=== PATIENT | female | born 1980 | race Caucasian/White ===

== ENCOUNTER 2018-05-13 08:13 | Emergency (ER) | payer BC ==
[2018-05-13 08:26] VITALS: BMI 29.9
--- NOTE | 2018-05-13 08:50 | ED PDOC ---
Arrival/HPI - General Historian: Patient, Family - History of Present Illness Time/Duration: Prior to Arrival Symptom Onset: Sudden Symptom Course: Unchanged Quality: Aching, Throbbing Severity Level: 8 Context: Walking, Street, Pedestrian <David Barrera - Last Filed: 05/13/18 09:42> <Jalen Olivia - Last Filed: 05/13/18 19:38> - General Chief Complaint: Lower Extremity Problem/Injury Time Seen by Provider: 05/13/18 08:26 - History of Present Illness Narrative History of Present Illness (Text): 05/13/18 08:47 Patient is a 37 year old female with no PMH presents s/p L ankle trauma. She states she fell while she was crossing the street. It hurts and she is barely able to move or walk on the ankle. She states that the bruise on the ankle has gotten larger since she fell about an hour ago. She has a surgical history of c/ s, has no medical allergies, and denies any pertinent family history. She is a current 2 PPD smoker, drinks alcohol occasionally, and denies using any other drugs. (David Barrera) Past Medical History - Provider Review Nursing Documentation Reviewed: Yes - Past History Past History: No Previous - Infectious Disease Hx of Infectious Diseases: None - Tetanus Immunization Tetanus Immunization: Unknown - Past Medical History Past Medical History: No Previous - Cardiac Hx Cardiac Disorders: No - Pulmonary Hx Respiratory Disorders: Yes Hx Asthma: Yes - Neurological Hx Neurological Disorder: No - HEENT Hx HEENT Disorder: No - Renal Hx Renal Disorder: No - Endocrine/Metabolic Hx Endocrine Disorders: No - Hematological/Oncological Hx Blood Disorders: No - Integumentary Hx Dermatological Disorder: No - Musculoskeletal/Rheumatological Hx Musculoskeletal Disorders: No - Gastrointestinal Hx Gastrointestinal Disorders: No - Genitourinary/Gynecological Hx Genitourinary Disorders: Yes Other/Comment: PID - Psychiatric Hx Psychophysiologic Disorder: No Hx Substance Use: No - Past Surgical History Past Surgical History: No Previous - Surgical History Hx Section: Yes Other/Comment: Tummy Tuck - Anesthesia Hx Anesthesia: Yes Hx Anesthesia Reactions: No Hx Malignant Hyperthermia: No - Suicidal Assessment Feels Threatened In Home Enviroment: No <David Barrera - Last Filed: 05/13/18 09:42> Family/Social History - Physician Review Nursing Documentation Reviewed: Yes Family/Social History: No Known Family HX Smoking Status: Heavy Smoker > 10 Cigarettes Daily Hx Alcohol Use: Yes (socially) Hx Substance Use: No Hx Substance Use Treatment: No <David Barrera - Last Filed: 05/13/18 09:42> Allergies/Home Meds <David Barrera - Last Filed: 05/13/18 09:42> <Jalen Olivia - Last Filed: 05/13/18 19:38> Allergies/Adverse Reactions: Allergies No Known Allergies Allergy (Verified 05/13/18 08:24) Home Medications: Home Meds Medication Instructions Recorded Confirmed No Known Home Med 05/13/18 05/13/18 Review of Systems - Physician Review All systems were reviewed & negative as marked: Yes - Review of Systems Constitutional: absent: Fatigue, Fevers Eyes: absent: Vision Changes ENT: absent: Hearing Changes, Sore Throat Respiratory: absent: SOB, Cough Cardiovascular: absent: Chest Pain, Palpitations Gastrointestinal: absent: Abdominal Pain, Nausea, Vomiting Genitourinary Female: absent: Dysuria, Frequency Musculoskeletal: absent: Arthralgias Skin: absent: Rash, Pruritis Neurological: absent: Headache, Dizziness Endocrine: absent: Diaphoresis Hemo/Lymphatic: absent: Adenopathy Psychiatric: absent: Anxiety, Depression <David Barrera - Last Filed: 05/13/18 09:42> Physical Exam Vital Signs Reviewed: Yes Temperature: Afebrile Blood Pressure: Normal Pulse: Regular Respiratory Rate: Normal Appearance: Positive for: Non-Toxic, Uncomfortable Pain Distress: Mild Mental Status: Positive for: Alert and Oriented X 3 - Systems Exam Head: Present: Atraumatic, Normocephalic Pupils: Present: PERRL Extroacular Muscles: Present: EOMI Ears: Present: Normal Mouth: Present: Moist Mucous Membranes Pharnyx: Present: Normal. No: ERYTHEMA, EXUDATE Nose (External): Present: Atraumatic Respiratory/Chest: Present: Wheezes (end expiratory wheezes bilaterally, pt states this is normal for her after having a cigarette). No: Decreased Breath Sounds, Rales, Rhonchi Cardiovascular: Present: Regular Rate and Rhythm, Normal S1, S2. No: Murmurs, Rub, Gallop Abdomen: Present: Normal Bowel Sounds. No: Tenderness, Rebound, Guarding Back: Present: Normal Inspection. No: CVA Tenderness Upper Extremity: Present: Normal Inspection. No: Cyanosis, Edema Lower Extremity: Present: Normal Inspection. No: Edema Neurological: Present: Speech Normal Skin: Present: Warm, Dry. No: Rashes Psychiatric: Present: Alert, Oriented x 3 <BarreraDavid - Last Filed: 05/13/18 09:42> Vital Signs Temp Pulse Resp BP Pulse Ox 05/13/18 09:45 98 F 85 19 123/56 L 99 05/13/18 08:25 98.4 F 89 18 124/85 94 L Medical Decision Making <David Barrera - Last Filed: 05/13/18 09:42> - RAD Interpretation Yard Attendant: Radiologist <Jalen Olivia - Last Filed: 05/13/18 19:38> ED Course and Treatment: 05/13/18 09:42 Instructed patient on proper crutch use and adjusted for her height. She is now able to ambulate with crutches. Instructed her to follow up with Dr. Smith after 2 weeks if she is not improving. (David Barrera) 05/13/18 08:28 Impression: 37 year old female presents to the Emergency department for 10/10 throbbing and sharp left ankle pain. In agreement with resident note, which includes further HPI details. Patient was seen and evaluated with resident, came up with plan and treatment together. Plan: --Ibuprofen -- X-Ray of ankle, left 3 views routine -- test, routine -- Reassess and disposition Progress Notes: X-Ray of ankle reviewed by radiologist, shows: Report Date : 05/13/2018 09:18:19 Creator : Andriy Marcelo MD Dictator : Andriy Marcelo MD Refrigeration Service Inspector : Andriy Marcelo MD FINDINGS: BONES: Normal. No fracture. JOINTS: Normal. No osteoarthritis. Ankle mortise maintained. Talar dome intact SOFT TISSUES: Normal. OTHER FINDINGS: None. IMPRESSION: Normal left ankle radiographs. 05/13/18 09:34 Patient ambulating now with crutches. (Jalen Olivia) - RAD Interpretation Radiology Orders: 05/13/18 08:39 ANKLE LEFT 3 VIEWS ROUTINE [RAD] Stat - Medication Orders Current Medication Orders: Discontinued Medications Ibuprofen (Motrin Tab) 600 mg PO ONCE ONE Stop: 05/13/18 08:47 Last Admin: 05/13/18 09:07 Dose: 600 mg MAR Pain/Vitals Document 05/13/18 09:07 GMI (Rec: 05/13/18 09:08 GMI [id number]) Pain Reassessment Is This A Pain ReAssessment? Yes Sleep Is patient sleeping during reassessment? No Presence of Pain Presence of Pain Yes Pain Scale Used Pain Scale Used Numeric Location Left, Right or Bilateral Left Pain Location Body Site Ankle <David Barrera - Last Filed: 05/13/18 09:42> - PA / BRASS CLEANER / Resident Statement MD/DO has reviewed & agrees with the documentation as recorded. MD/DO has examined the patient and agrees with the treatment plan. - Scribe Statement The provider has reviewed the documentation as recorded by the Scribe <Jalen Olivia - Last Filed: 05/13/18 19:38> - Scribe Statement Jahaira Alvarez All medical record entries made by the Scribe were at my direction and personally dictated by me. I have reviewed the chart and agree that the record accurately reflects my personal performance of the history, physical exam, medical decision making, and the department course for this patient. I have also personally directed, reviewed, and agree with the discharge instructions and disposition. (Jalen Olivia) Disposition/Present on Arrival - Present on Arrival Any Indicators Present on Arrival: No History of DVT/PE: No History of Uncontrolled Diabetes: No Urinary Catheter: No History of Decub. Ulcer: No History Surgical Site Infection Following: None - Disposition Have Diagnosis and Disposition been Completed?: Yes Disposition Time: 09:35 Patient Plan: Discharge <David Barrera - Last Filed: 05/13/18 09:42> <Jalen Olivia - Last Filed: 05/13/18 19:38> - Disposition Diagnosis: Left ankle sprain Disposition: HOME/ ROUTINE Condition: FAIR Discharge Instructions (ExitCare): Ankle Sprain (DC) Additional Instructions: Please follow up with orthopedic physician if you are still unable to walk without crutches at the end of two weeks. Referrals: Andriy Smith DO [Staff Provider] - Follow up with primary Forms: [employer] (Chinese)
--- NOTE | 2018-05-13 09:20 | RAD ---
Date of service: 05/13/2018 PROCEDURE: Left Ankle Radiographs. HISTORY: trauma COMPARISON: None FINDINGS: BONES: Normal. No fracture. JOINTS: Normal. No osteoarthritis. Ankle mortise maintained. Talar dome intact SOFT TISSUES: Normal. OTHER FINDINGS: None. IMPRESSION: Normal left ankle radiographs.
[2018-05-13 09:47] VITALS: BP 123/56; PULSE 85; RESP 19; TEMP 98; O2SAT 99
[2018-05-13] MEDS ORDERED: Albuterol-Ipratrop 3 mg / 0.5 (3 ml) UD ONE (12:49)
== END 2018-05-13 09:47 | disposition home or self-care (01) ==
LOC: ED 08:13
DX: S93.402A Sprain of unspecified ligament of left ankle, initial encounter (principal); W18.30XA Fall on same level, unspecified, initial encounter; Y92.410 Unspecified street and highway as the place of occurrence of the external cause; F17.210 Nicotine dependence, cigarettes, uncomplicated

== ENCOUNTER 2019-02-06 11:56 | Emergency (ER) | payer BC ==
[2019-02-06 11:57] VITALS: BMI 29.9
[2019-02-06 12:09] VITALS: PULSE 70; RESP 18; TEMP 97.5; O2SAT 98
[2019-02-06 12:10] VITALS: BP 115/77
[2019-02-06] MEDS ORDERED: Albuterol-Ipratrop 3 mg / 0.5 (3 ml) UD IH STA (12:21)
--- NOTE | 2019-02-06 12:30 | ED PDOC ---
Arrival/HPI - General Chief Complaint: Lower Extremity Problem/Injury Time Seen by Provider: 02/06/19 12:11 Historian: Patient - History of Present Illness Narrative History of Present Illness (Text): 02/06/19 12:24 38 year old female, whose past medical history includes asthma, presents to the emergency department complaining of leg swelling and sunburn to the legs bilaterally that began 3 days ago. Patient states she traveled to [place] 3 days ago and reports the swelling began before the sunburn. Patient is a heavy smoker. Patient also reports wheezing, but denies any fever, chills, chest pain, abdominal pain, nausea, vomiting, diarrhea, urinary symptoms, back pain, neck pain, headache, dizziness, or any other complaints. PMD: Dr. Acevedo Time/Duration: Other (3 days) Symptom Onset: Gradual Symptom Course: Unchanged Activities at Onset: Light Context: Other (traveling) Past Medical History - Provider Review Nursing Documentation Reviewed: Yes - Past History Past History: No Previous - Infectious Disease Hx of Infectious Diseases: None - Tetanus Immunization Tetanus Immunization: Unknown - Past Medical History Past Medical History: No Previous - Cardiac Hx Cardiac Disorders: No - Pulmonary Hx Respiratory Disorders: Yes Hx Asthma: Yes - Neurological Hx Neurological Disorder: No - HEENT Hx HEENT Disorder: No - Renal Hx Renal Disorder: No - Endocrine/Metabolic Hx Endocrine Disorders: No - Hematological/Oncological Hx Blood Disorders: No - Integumentary Hx Dermatological Disorder: No - Musculoskeletal/Rheumatological Hx Musculoskeletal Disorders: No - Gastrointestinal Hx Gastrointestinal Disorders: No - Genitourinary/Gynecological Hx Genitourinary Disorders: Yes Other/Comment: PID - Psychiatric Hx Psychophysiologic Disorder: No Hx Substance Use: No - Past Surgical History Past Surgical History: No Previous - Surgical History Hx Section: Yes Other/Comment: Tummy Tuck - Anesthesia Hx Anesthesia: Yes Hx Anesthesia Reactions: No Hx Malignant Hyperthermia: No - Suicidal Assessment Feels Threatened In Home Enviroment: No Family/Social History - Physician Review Nursing Documentation Reviewed: Yes Family/Social History: No Known Family HX Smoking Status: Heavy Smoker > 10 Cigarettes Daily Hx Alcohol Use: Yes (socially) Frequency of alcohol use: Socially Hx Substance Use: No Hx Substance Use Treatment: No Allergies/Home Meds Allergies/Adverse Reactions: Allergies No Known Allergies Allergy (Verified 02/06/19 12:08) Review of Systems - Physician Review All systems were reviewed & negative as marked: Yes - Review of Systems Constitutional: absent: Fevers, Other (chills) Respiratory: Wheezing. absent: SOB Cardiovascular: Edema. absent: Chest Pain Gastrointestinal: absent: Abdominal Pain, Diarrhea, Nausea, Vomiting Genitourinary Female: absent: Dysuria, Frequency, Hematuria Musculoskeletal: absent: Back Pain, Neck Pain Skin: Other (sun burn to the legs bilaterally ) Neurological: absent: Headache, Dizziness Physical Exam Vital Signs Reviewed: Yes Vital Signs Temp Pulse Resp BP Pulse Ox 02/06/19 12:10 115/77 02/06/19 12:08 97.5 F L 70 18 98 Temperature: Afebrile Blood Pressure: Normal Pulse: Regular Respiratory Rate: Normal Appearance: Positive for: Well-Appearing, Non-Toxic, Comfortable Pain Distress: None Mental Status: Positive for: Alert and Oriented X 3 - Systems Exam Head: Present: Atraumatic, Normocephalic Pupils: Present: PERRL Extroacular Muscles: Present: EOMI Conjunctiva: Present: Normal Mouth: Present: Moist Mucous Membranes Neck: Present: Normal Range of Motion Respiratory/Chest: Present: Wheezes (mild scattered), Rhonchi (mild scattered). No: Respiratory Distress, Accessory Muscle Use Cardiovascular: Present: Regular Rate and Rhythm, Normal S1, S2. No: Murmurs Abdomen: No: Tenderness, Distention, Peritoneal Signs Back: Present: Normal Inspection Upper Extremity: Present: Normal Inspection. No: Cyanosis, Edema Lower Extremity: Present: Normal Inspection. No: Edema Neurological: Present: GCS=15, CN II-XII Intact, Speech Normal Skin: Present: Warm, Dry, Normal Color, Other (diffuse 1st degree burn). No: Rashes Psychiatric: Present: Alert, Oriented x 3, Normal Insight, Normal Concentration Medical Decision Making ED Course and Treatment: 02/06/19 12:30 Impression: 38 year old female presents complaining of bilateral leg swelling that began before she sustained sunburn during her trip to [place] 3 days ago. Plan: -- CXR -- Douneb, Prednisone -- Duplex US -- Reassess and disposition Progress Notes: 02/06/19 13:20 Patient refuses cxr. Duplex US: Negative for DVT. 02/06/19 13:25 On reevaluation the is in no acute distress. I have discussed the results and plan with the patient, who expresses understanding. Patient given the opportunity to ask question, all questions were answered and there is agreement with the plan to discharge the patient home. Patient is stable for discharge. Patient was instructed to follow up with physician/clinic in 1-2 days or return if symptoms persist/worsen or new concerning symptoms arise. 02/06/19 14:32 us neg. pt refsess cxr. wheezing improving. 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 staets will return with worsening. - RAD Interpretation Radiology Orders: 02/06/19 12:22 CHEST TWO VIEWS (PA/LAT) [RAD] Stat DUPLEX LOWER EXTRM VEIN BILAT [US] Stat Train Operations Manager: Radiologist - Medication Orders Current Medication Orders: Albuterol/Ipratropium (Duoneb 3 Mg/0.5 Mg (3 Ml) Ud) 3 ml IH STAT STA Stop: 02/06/19 12:22 Albuterol/Ipratropium (Duoneb 3 Mg/0.5 Mg (3 Ml) Ud) 3 ml IH STAT STA Stop: 02/06/19 12:23 Prednisone (Prednisone Tab) 50 mg PO STAT STA Stop: 02/06/19 12:22 - Scribe Statement The provider has reviewed the documentation as recorded by the Haja Mitchell Provider Scribe Attestation: All medical record entries made by the Scribe were at my direction and personally dictated by me. I have reviewed the chart and agree that the record accurately reflects my personal performance of the history, physical exam, medical decision making, and the department course for this patient. I have also personally directed, reviewed, and agree with the discharge instructions and disposition. Disposition/Present on Arrival - Present on Arrival Any Indicators Present on Arrival: No History of DVT/PE: No History of Uncontrolled Diabetes: No Urinary Catheter: No History of Decub. Ulcer: No History Surgical Site Infection Following: None - Disposition Have Diagnosis and Disposition been Completed?: Yes Diagnosis: Asthma, Sunburn Disposition: HOME/ ROUTINE Disposition Time: 12:00 Condition: STABLE Discharge Instructions (ExitCare): Sunburn, Asthma, Adult (DC) Additional Instructions: return to er with worsening symptoms or concerns. Prescriptions: Albuterol 0.083% [Albuterol 0.083% Inhal Luana (2.5 mg/3 ml) UD] 2.5 mg IH Q4 PRN #20 neb PRN Reason: Wheezing Nebulizer [Aeroeclipse II] 1 each MC Q4 PRN #1 each PRN Reason: Wheezing Nebulizer Accessories [Adult Aerosol Mask] 1 each MC Q4 #1 each Prednisone 50 mg PO DAILY #5 tab Silver Sulfadiazine 1% [Silvadene 1%] 1 applic TP BID #1 jar Forms: [employer] (Puerto Rican)
[2019-02-06] MEDS: Albuterol-Ipratrop 3 mg / 0.5 (3 ml) UD IH STA ×2 (13:27→13:36)
--- NOTE | 2019-02-06 14:49 | US ---
HISTORY: Leg pain and swelling. Evaluate for DVT PHYSICIAN(S): Tarik Jennings MD. TECHNIQUE: Duplex sonography and color-flow Doppler with graded compression were used to evaluate the deep venous systems of both lower extremities. The exam is somewhat limited by edema FINDINGS: The visualized deep venous systems of both lower extremities are sonographically normal and compressible. Normal wave forms and augmentation are seen. There is no sonographic evidence for deep venous thrombosis in the visualized segments of both lower extremities. IMPRESSION: No sonographic evidence for deep venous thrombosis in the visualized segments of both lower extremities.
== END 2019-02-06 13:50 | disposition home or self-care (01) ==
LOC: ED 11:56
DX: J45.909 Unspecified asthma, uncomplicated (principal); L55.9 Sunburn, unspecified; F17.210 Nicotine dependence, cigarettes, uncomplicated